=== PATIENT | female | born 1995 | race Asian ===

== ENCOUNTER 2017-10-28 23:38 | Emergency (ER) | payer OTHER ==
[~2017-10-28] VITALS: Ht 160 cm; Wt 85.0 kg
[2017-10-28 23:51] VITALS: TEMP 36.6; Ht 160 cm; Wt 85.0 kg
--- NOTE | 2017-10-29 00:11 | EMERGENCY ROOM VISIT NOTE ---
History Report prepared by Tasia: Annabelle Agudelo Under the Supervision of: Dr. Elsa Tsai D.O. First contact with patient: 23:49 Chief Complaint: MENTAL HEALTH EVALUATION Stated Complaint: MENTAL HEALTH ASSESSMENT History of Present Illness The patient is a 21 year old female who presents to the Emergency Room with complaints of episodic general mental health evaluation SHEEP HERDER. The patient notes that she is extremely stressed out due to a fight she had tonight with her boyfriend. Per boyfriend, the patient was sitting at a dining table and he was sitting on the couch while they were discussing the possibility of breaking up. He states that she grabbed a knife and cut a roll of paper towels and then approached him and stated that she wanted to while crying. He reports taking the knife from her and calling 911. He states the patient has never made comments or expressed self-harm in the past. The patient states that she was trying to get her boyfriends attention while he was playing video game. She notes that he did not respond to her, so she grabbed a kitchen knife and told him that she would harm herself if he did not pay attention to her. The patient states that she is from [facility] and she communicates with her family twice a day. She notes that she has been here in the [place] for 1[place]5 years. She states that she and her boyfriend have been together for two years. She denies any current suicidal ideations. She reports that she is hormonal while she is on her menstrual cycle. She notes that she is currently on her cycle. She denies any nausea, vomiting, shortness of breath, abdominal pain, or cramps. She denies any chance of . She denies any underlying medical problems. She denies any history of depression. Per boyfriend, he thinks the patient has anxiety. She denies any family history of mental health problems. When asked if how she would be if her boyfriend left her, she states that she would be fine. She reports having friends in the local area. She is currently majoring as a mechanical specialist. Source of History: patient, spouse/significant other Onset: SHEEP HERDER Position: other (general) Quality: other (mental health evaluation) Timing: other (episodic ) Associated Symptoms: No SOB, No nausea, No vomiting, No abdominal pain Note: She denies any SI or cramps. Review of Systems See HPI for pertinent positives & negatives. A total of 10 systems reviewed and were otherwise negative. Past Medical & Surgical No other pertinent personal past medical history obtained. Family History No pertinent family history Social History Smoking Status: Never Smoker Smokeless Tobacco Use: No Alcohol Use: none Drug Use: none Marital Status: in relationship Housing Status: lives with roommate Occupation Status: [employer] student Current/Historical Medications No Active Prescriptions or Reported Meds Allergies Coded Allergies: No Known Allergies (Unverified , 10/29/17) Physical Exam Vital Signs Date Time Temp Pulse Resp B/P (MAP) Pulse Ox O2 Delivery O2 Flow Rate FiO2 10/29/17 02:55 80 16 121/90 100 10/29/17 01:53 80 16 108/57 100 Room Air 10/28/17 23:51 36.6 100 20 119/86 99 Room Air Physical Exam HEENT: Head - normocephalic and atraumatic Pupils are equal, round, and reactive to light. Extraocular eye muscles are intact, and sclera are anicteric. Nose - moist nasal mucosa without discharge. Mouth - moist buccal mucosa. Oropharynx is nonerythematous and there is no tonsillar exudate or edema noted. Neck: Supple; no JVD, nuchal rigidity, cervical lymphadenopathy, or auscultated bruits. Heart: Regular rate and rhythm. There is a normal S1 and S2 with no murmurs, clicks, or gallops appreciated. Lungs: Clear to auscultation bilaterally with no wheezes, rales, or rhonchi. Abdomen: Soft, completely nontender, nondistended, with good bowel sounds. There are no palpable pulsatile masses or hepatosplenomegaly. There is no guarding, rigidity, or rebound noted. Extremities: No evidence of cyanosis, clubbing, or edema. There are easily palpable peripheral pulses. Skin: warm and dry with good turgor and no rashes. Psych: Tearful at times. Normal affect. Denies SI. Medical Decision & Procedures Laboratory Results 10/29/17 00:30 10/29/17 00:30 Test 10/29/17 00:30 10/29/17 00:47 Red Blood Count 4.06 M/uL (4.2-5.4) Mean Corpuscular Volume 86.0 fL (80-100) Mean Corpuscular Hemoglobin 29.1 pg (25-34) Mean Corpuscular Hemoglobin Concent 33.8 g/dl (32-36) RDW Standard Deviation 45.4 fL (36.4-46.3) RDW Coefficient of Variation 14.4 % (11.5-14.5) Mean Platelet Volume 10.3 fL (7.4-10.4) Anion Gap 2.0 mmol/L (3-11) Est Creatinine Clear Calc Drug Dose 123.0 ml/min Estimated GFR () 131.8 Estimated GFR (Non- 113.7 BUN/Creatinine Ratio 15.1 (10-20) Calcium Level 8.8 mg/dl (8.5-10.1) Total Bilirubin 0.2 mg/dl (0.2-1) Direct Bilirubin < 0.1 mg/dl (0-0.2) Aspartate Amino Transf (AST/SGOT) 11 U/L (15-37) Alanine Aminotransferase (ALT/SGPT) 13 U/L (12-78) Alkaline Phosphatase 65 U/L (45-117) Total Protein 7.6 gm/dl (6.4-8.2) Albumin 3.7 gm/dl (3.4-5.0) Thyroid Stimulating Hormone (TSH) 1.180 uIu/ml (0.300-4.500) Salicylates Level < 1.7 mg/dl (2.8-20) Acetaminophen Level < 2 ug/ml (10-30) Ethyl Alcohol mg/dL < 3.0 mg/dl (0-3) Urine Color RED Urine Appearance TURBID (CLEAR) Urine pH 7.0 (4.5-7.5) Urine Specific [place] 1.020 (1.000-1.030) Urine Protein NEG (NEG) Urine Glucose (UA) NEG (NEG) Urine Ketones NEG (NEG) Urine Occult Blood 3+ (NEG) Urine Nitrite NEG (NEG) Urine Bilirubin NEG (NEG) Urine Urobilinogen NEG (NEG) Urine Leukocyte Esterase NEG (NEG) Urine RBC >30 /hpf (0-4) Urine WBC >30 /hpf (0-5) Urine Epithelial Cells >30 /lpf (0-5) Urine Bacteria 1+ (NEG) Urine Mucus PRESENT (NONE PRSENT) Urine Test NEG (NEG) Urine Opiates Screen NEG (NEG) Urine Methadone, Qualitative NEG (NEG) Urine Barbiturates NEG (NEG) Urine Phencyclidine (PCP) Level NEG (NEG) Ur Amphetamine/Methamphetamine NEG (NEG) MDMA (Ecstasy) Screen NEG (NEG) Urine Benzodiazepines Screen NEG (NEG) Urine Cocaine Metabolite NEG (NEG) Urine Marijuana (THC) NEG (NEG) Laboratory results per my review. ED Course 2358: Past medical records reviewed. The patient was evaluated in room A7. A complete history and physical exam was performed. Laboratory studies were drawn as above. 0005: I spoke with the patients boyfriend. Please see HPI. 0140: The patient was felt to be medically cleared. I reassessed the patient at this time. Pari from [facility] will evaluate the patient. The patient is anxious to go home. 0248: I reassessed the patient at this time. Pari determined the patient did not meet criteria for further mental health care. I discussed the results and treatment plan with the patient. I answered all pertaining questions that she had. She expressed understanding and verbalized agreement. The patient will be discharged home. Medical Decision The patient is a 21 year old female who presents to the ED with mental health evaluation. Differential diagnosis includes mood disorder, SI, anxiety, and thought disorder. Lab results showed: Anemic with Hemoglobin 11.8; Normal WBC. Normal renal function. Normal Glucose. Normal LFTs. Normal TSH. Tox screen is negative. Negative Tylenol. Negative Aspirin. Negative Alcohol. Urine has blood present. test was negative. This is a 21-year-old female patient who presents to the emergency department after making a suicidal gesture. The patient has no history of mental health problems or previous suicide attempts. She has never been evaluated by a psychiatrist or therapist. She admits that she was quite frustrated with her boyfriend when she made this gesture. She denies being suicidal or homicidal. She was evaluated by staff from 3 . They did not feel that she met criteria for inpatient psychiatric care. She is willing to follow-up with the [facility]-see [facility]. She was given information for mobile crisis. Medication Reconcilliation Current Medication List: was personally reviewed by me Blood Pressure Screening Patient's blood pressure: Normal blood pressure Impression Primary Impression: Mood disorder Scribe Attestation The scribe's documentation has been prepared under my direction and personally reviewed by me in its entirety. I confirm that the note above accurately reflects all work, treatment, procedures, and medical decision making performed by me. Departure Information Dispostion Home / Self-Care Prescriptions No Active Prescriptions or Reported Meds Referrals [facility] Forms HOME CARE DOCUMENTATION FORM, IMPORTANT VISIT INFORMATION Patient Instructions My [facility] Additional Instructions Rest Minimize stress and anxiety. Eat regular meals to avoid feeling hangry Follow up on campus with [facility] for an appointment on Tuesday call [facility] n if you have any nother thoughts of harm
[2017-10-29 00:57] LABS: HEMATOCRIT 34.9 % (37-47); HEMOGLOBIN 11.8 g/dL (12.0-16.0); MEAN CORPUSCULAR HEMOGLOBIN 29.1 pg (25-34); MEAN CORPUSCULAR HGB CONC 33.8 g/dl (32-36); MEAN PLATELET VOLUME 10.3 fL (7.4-10.4); PLATELET COUNT 308 K/uL (130-400); RED CELL DISTRIBUTION WIDTH CV 14.4 % (11.5-14.5); RED CELL DISTRIBUTION WIDTH SD 45.4 fL (36.4-46.3); WHITE BLOOD COUNT 9.92 K/uL (4.8-10.8)
[2017-10-29 01:16] LABS: ALBUMIN 3.7 gm/dl (3.4-5.0); ALT/SGPT 13 U/L (12-78); AST/SGOT 11 U/L (15-37); BLOOD UREA NITROGEN 11 mg/dl (7-18); CALCIUM 8.8 mg/dl (8.5-10.1); CARBON DIOXIDE 28 mmol/L (21-32); CREATININE 0.76 mg/dl (0.60-1.20); GLUCOSE 88 mg/dl (70-99); POTASSIUM 3.8 mmol/L (3.5-5.1); SODIUM 136 mmol/L (136-145)
[2017-10-29 01:27] LABS: ALKALINE PHOSPHATASE 65 U/L (45-117); TOTAL PROTEIN 7.6 gm/dl (6.4-8.2)
[2017-10-29 02:55] VITALS: BP 121/90; PULSE 80; O2SAT 100
== END 2017-10-29 02:56 | disposition home or self-care (01) ==
LOC: EDBD 23:38 → C.EDA 23:48
DX: F39 Unspecified mood [affective] disorder (principal)